=== PATIENT | female | born 1985 | race African-American/Black ===

== ENCOUNTER 2020-12-29 11:12 | Emergency (ER) | payer OTHER ==
[~2020-12-29] VITALS: Ht 149.9 cm; Wt 120.2 kg
[2020-12-29] MEDS ORDERED: IBUP800 PO (12:18)
[2020-12-29] MEDS ORDERED: Robaxin-750750 MG PO (12:18)
== END 2020-12-29 12:35 | disposition home or self-care (01) ==
LOC: ER 11:12
DX: M54.5 Low back pain (principal); Z88.8 Allergy status to other drugs, medicaments and biological substances; W07.XXXA Fall from chair, initial encounter
CPT/HCPCS: 72100; 99283-25; A9270